=== PATIENT | female | born 1985 | race Hispanic/Latino ===

== ENCOUNTER 2018-06-13 19:30 | Emergency (ER) | payer SELFPAY ==
[2018-06-13 19:39] VITALS: BP 120/68; PULSE 81; RESP 16; TEMP 98; O2SAT 100
--- NOTE | 2018-06-13 21:21 | ED PDOC ---
Lower Extremity Pain/Injury Time Seen by Provider: 06/13/18 19:41 Chief Complaint (Nursing): Lower Extremity Problem/Injury Chief Complaint (Provider): Lower Extremity Problem/Injury History Per: Patient History/Exam Limitations: no limitations Onset/Duration Of Symptoms: Days (today) Current Symptoms Are (Timing): Still Present Additional Complaint(s): 32 year old female presents with a left knee injury s/p fall today. Earlier today, patient was skiing when she fell on her right side but her left leg was held still and heard a crack in her left knee. Patient took pain medications [employer] and does not have pain at present. She denies any numbness, tingling or weakness. PMD: none provided - Knee Description Of Injury: Fell Past Medical History Reviewed: Historical Data, Nursing Documentation, Vital Signs Vital Signs: Last Vital Signs Temp 98 F 06/13/18 19:33 Pulse 81 06/13/18 19:33 Resp 16 06/13/18 19:33 BP 120/68 06/13/18 19:33 Pulse Ox 100 06/13/18 19:33 - Medical History PMH: No Chronic Diseases - Family History Family History: States: Unknown Family Hx - Allergies Allergies/Adverse Reactions: Allergies Allergy/AdvReac Type Severity Reaction Status Date / Time No Known Allergies Allergy Verified 06/13/18 19:39 Review of Systems ROS Statement: Except As Marked, All Systems Reviewed And Found Negative Musculoskeletal: Positive for: Other (left knee pain) Neurological: Positive for: Other (no tingling). Negative for: Weakness, Numbness Physical Exam - Reviewed Nursing Documentation Reviewed: Yes Vital Signs Reviewed: Yes - Physical Exam Appears: Positive for: No Acute Distress Head Exam: Positive for: ATRAUMATIC, NORMOCEPHALIC Skin: Positive for: Normal Color, Warm, Dry Eye Exam: Positive for: Normal appearance, EOMI, PERRL Pulses-Dorsalis Pedis (L): 2+ Pulses-Dorsalis Pedis (R): 2+ Extremity: Positive for: Other (left knee: no tenderness, no swelling, no deformity, no break in skin integrity, limited ROM secondary to pain ) Neurologic/Psych: Positive for: Alert, Oriented (x3) - ECG O2 Sat by Pulse Oximetry: 100 (RA) Pulse Ox Interpretation: Normal - Radiology X-Ray: Interpreted by Me (Knee x-ray) - Progress ED Course And Treament: Pt. informed of x-ray results and need for further testing and ortho eval. Agrees with plan and care. Knee immobilized in immobilizer applied by pbx technician. Crutches and crutch walking instructions provided. Medical Decision Making Medical Decision Making: Time: 1946 Plan: --Left knee XR Scribe Attestation: Documented by Birgit Rodgers, acting as a scribe for Dajuan Burrows PA-C Provider Scribe Attestation: All medical record entries made by the Scribe were at my direction and personally dictated by me. I have reviewed the chart and agree that the record accurately reflects my personal performance of the history, physical exam, medical decision making, and the department course for this patient. I have also personally directed, reviewed, and agree with the discharge instructions and disposition. Disposition - Clinical Impression Clinical Impression: Knee injury - Patient ED Disposition Is Patient to be Admitted: No - Disposition Referrals: Dash Gramajo MD [Medical Doctor] - Disposition: Routine/Home Disposition Time: 19:30 Condition: STABLE Additional Instructions: FOLLOW UP WITH DR. GRAMAJO FOR FURTHER EVALUATION RETURN TO ED IMMEDIATELY IF SYMPTOMS WORSEN TANESHA CHRISTINA, thank you for letting us take care of you today. Your provider was Tim Blair MD and you were treated for LT KNEE INJURY. The emergency medical care you received today was directed at your acute symptoms. If you were prescribed any medication, please fill it and take as directed. It may take several days for your symptoms to resolve. Return to the Emergency Department if your symptoms worsen, do not improve, or if you have any other problems. Please contact your doctor or call one of the physicians/clinics you have been referred to that are listed on the Patient Visit Information form that is included in your discharge packet. Bring any paperwork you were given at discharge with you along with any medications you are taking to your follow up visit. Our treatment cannot replace ongoing medical care by a primary care provider outside of the emergency department. Thank you for allowing the [facility] team to be part of your care today. If you had an X-Ray or CT scan: A Radiologist will review the ED reading if any change in treatment is needed we will contact you. If you had a blood, urine, or wound culture: It will take several days for the results, if any change in treatment is needed we will contact you. If you had an STI test: It will take 48 hours for the results. Please call after 1 week if you have not heard back. Instructions: How to Use Crutches, Knee Sprain (DC), Going Up and Down Curbs or Stairs With a Walker or Crutches Forms: [employer] ([place])
--- NOTE | 2018-06-14 10:15 | RAD ---
Date of service: 06/13/2018 PROCEDURE: Left Knee Radiographs. HISTORY: Pain. COMPARISON: None. FINDINGS: BONES: Normal. No fracture. JOINTS: Normal. No osteoarthritis. JOINT EFFUSION: Questionable trace joint effusion. OTHER FINDINGS: None. IMPRESSION: No evidence of acute displaced fracture nor dislocation.
== END 2018-06-13 21:40 | disposition home or self-care (01) ==
LOC: H.ER 19:30
DX: S89.92XA Unspecified injury of left lower leg, initial encounter (principal); W19.XXXA Unspecified fall, initial encounter; Y92.89 Other specified places as the place of occurrence of the external cause